=== PATIENT | female | born 1960 | race Caucasian/White ===

== ENCOUNTER 2025-01-18 11:26 | Emergency (ER) | payer OTHER, BC ==
[2025-01-18 11:33] VITALS: BP 111/71; PULSE 74; RESP 18; TEMP 98.4; BMI 37.8
[2025-01-18] MEDS: DALBAVANCIN HCL 1,500 MG in DEXTROSE 5%-WATER - 500 ML IVPB ONE (13:14)
== END 2025-01-18 15:30 | disposition home or self-care (01) ==
LOC: JER 11:26
DX: L03.115 Cellulitis of right lower limb (principal)
CPT/HCPCS: 36415; 80053; 83036; 85025; 85651; 86140; 99284-25; A6260; G0463-25; J0875